=== PATIENT | female | born 1995 ===

== ENCOUNTER → 2022-08-14 | Outpatient (CLI) | payer OTHER ==
--- NOTE | 2022-08-14 16:07 | Diagnostic Imaging Report ---
PROCEDURE: US OB SINGLE FETUS <14 WKS. TECHNIQUE: Multiple real-time grayscale images were obtained over the gravid uterus in various projections. INDICATION: Unsure dates. FINDINGS: There is a single live IUP measuring 17 weeks 0 days gestational age. heart rate was recorded at 146 BPM. Placenta is anterior. The amniotic fluid volume is unremarkable. Cervical length is 4.0 cm. No previa is detected. No perigestational sac hemorrhage is detected. Gestational age is too early for survey. IMPRESSION: Single live IUP of 17 weeks 0 days gestational age with estimated date of confinement sonographically of 01/22/2023. No complicating features are detected. Dictated by: Dictated on workstation # [id number]
== END ==
LOC: RAD 13:41
PROVIDERS: ATTEND Family Medicine
DX: Z34.91 Encounter for supervision of normal pregnancy, unspecified, first trimester (principal); Z3A.17 17 weeks gestation of pregnancy
CPT/HCPCS: 76801

== ENCOUNTER 2023-01-28 06:00 | Inpatient (IN) | payer OTHER ==
[2023-01-28] VITALS (45 sets, daily range): BP systolic 120–171; BP diastolic 61–97
[~2023-01-28] VITALS: Ht 160 cm; Wt 93.1 kg
--- NOTE | 2023-01-28 06:33 | History & Physical-OB ---
OB - Chief Complaint & HPI Date/Time Date of Admission: Date of Admission: Jan 28, 2023 at 06:01 Date seen by a Provider: Jan 28, 2023 Time Seen by a Provider: 06:30 Chief Complaint/History OB-Reason for Admission/Chief: Induction of Labor Hx : 2 Hx Para: 1 Expected Date of Delivery: Jan 26, 2023 Gestational Age in Weeks: 40 Admission Nurse Assessment Rev: Yes Allergies and Home Medications Allergies Coded Allergies: No Known Drug Allergies (Unverified , 01/28/23) Patient Home Medication List Home Medication List Reviewed: Yes No Active Prescriptions or Reported Meds OB - History Hx of Present Care: Yes Ultrasounds: Normal mid trimester US Obstetrical Complications: None Medical Complications: None Patient Past Medical History No chronic medical problems OB - Admission Exam Physical Exam HEENT: Moist Membranes Heart: Rhythm Normal Lungs: Clear Abdomen: Gravid Extremities: Normal Batista Scoring Tool (Modified) Dilation (cm): 1-2cm (1) Effacement (%): 51-79% (2) Descent/Station: -3 (0) Cervix Consistency: Medium(1) Cervix Position: Middle/Mid-Position (1) Add 1 point for: Each previous vaginal delivery (1) Batista Score: 6 OB - Assessment/Plan/Diagnosis Assessment Assessment: induction of labor Admission Dx 1. IUP at term 40 weeks 2. GBS positive (perineum) Admission Status: Inpatient Order (span 2 midnights) Reason for Inpatient Admission: L&D Plan Plan: Induction Induction Method: AROM Other Plan Ampicillin lacihol AURELIA SIU MD Jan 28, 2023 06:33
[2023-01-28] MEDS ORDERED: AMPICILLIN (IV) 2,000 MG in NS (IVPB) 50 ML 50 ML IV ONE (07:22)
[2023-01-28] MEDS ORDERED: MINERAL OIL 30 ML UDC TOP PRN (07:30)
[2023-01-28] MEDS ORDERED: OXYTOCIN PRE-MIX DRIP 500 ML IV SCH ×3 (07:30→17:45)
[2023-01-28 07:33] LABS: BASOPHILS % (AUTO) 0 % (0-10); EOSINOPHILS # (AUTO) 0.1 10^3/uL (0.0-0.3); EOSINOPHILS % (AUTO) 1 % (0-10); HEMATOCRIT 34 % (35-52); HEMOGLOBIN 11.6 g/dL (11.5-16.0); LYMPHOCYTES # (AUTO) 2.3 10^3/uL (1.0-4.0); LYMPHOCYTES % (AUTO) 29 % (12-44); MEAN CORPUSCULAR HEMOGLOBIN 29 pg (25-34); MEAN CORPUSCULAR HGB CONC 34 g/dL (32-36); MEAN CORPUSCULAR VOLUME 83 fL (80-99); MEAN PLATELET VOLUME 12.4 fL (9.0-12.2); MONOCYTES # (AUTO) 0.6 10^3/uL (0.0-1.0); MONOCYTES % (AUTO) 8 % (0-12); NEUTROPHILS # (AUTO) 4.8 10^3/uL (1.8-7.8); NEUTROPHILS % (AUTO) 60 % (42-75); PLATELET COUNT 226 10^3/uL (130-400); WHITE BLOOD COUNT 8.1 10^3/uL (4.3-11.0)
[2023-01-28 07:50] LABS: COLOR,URINE YELLOW
[2023-01-28 07:51] LABS: BACTERIA,URINE FEW /HPF; BILIRUBIN,URINE NEGATIVE (NEGATIVE); CLARITY,URINE CLEAR; GLUCOSE, URINE (UA) NEGATIVE (NEGATIVE); KETONES,URINE NEGATIVE (NEGATIVE); LEUKOCYTE ESTERASE ,URINE 2+ (NEGATIVE); NITRITE,URINE NEGATIVE (NEGATIVE); PROTEIN,URINE NEGATIVE (NEGATIVE)
[2023-01-28] MEDS: D5 LR 1,000 ML IV SOLN 1,000 ML IV SCH ×2 (07:51→16:01)
[2023-01-28] MEDS ORDERED: AMPICILLIN 2,000 MG/14.8 ML (IV USE) ONE (07:55)
[2023-01-28 10:23] LABS: ALBUMIN 3.2 GM/DL (3.2-4.5)
[2023-01-28 10:24] LABS: POTASSIUM 3.9 MMOL/L (3.6-5.0)
[2023-01-28 10:25] LABS: CALCIUM 8.9 MG/DL (8.5-10.1)
[2023-01-28 10:26] LABS: TOTAL PROTEIN 6.5 GM/DL (6.4-8.2)
[2023-01-28 10:28] LABS: BILIRUBIN,TOTAL 0.2 MG/DL (0.1-1.0)
[2023-01-28 10:30] LABS: CREATININE SERUM 0.58 MG/DL (0.60-1.30)
[2023-01-28] MEDS: AMPICILLIN (IV) 1,000 MG in NS (IVPB) 50 ML 50 ML IV SCH ×2 (12:20→16:01)
[2023-01-28] MEDS ORDERED: MEPIVACAINE 2% 50 ML VIAL ONE (15:30)
[2023-01-28] MEDS ORDERED: MEPIVACAINE 2% 50 ML VIAL INJ ONE (16:45)
--- NOTE | 2023-01-28 17:05 | OB Labor & Delivery Record ---
L&D History Date of Service Date of Service: Jan 28, 2023 History Expected Date of Delivery: Jan 26, 2023 Gestational Age in Weeks: 40 Hx : 2 Hx Para: 2 Complications Events: Routine care Operative Indications (Cesarea: N/A-Vaginal Delivery Intrapartal Events: None Other Complications GBS positive at 36 weeks L&D Stage1 Stage One Onset of Labor - Date: Jan 28, 2023 Onset of Labor - Time: 06:38 Monitors and Tracing Monitor Mode: Internal Heart Rate: 145 Monitor Accelerations: Uniform Monitor Decelerations: Early Station: -3 Correction Variability: Average (6-10) Short Term Variability: Present Presentation: Vertex Vital Signs VS - Last 72 Hours, by Label 01/28/23 01/28/23 01/28/23 01/28/23 07:47 07:47 08:07 08:21 Temp 36.2 36.2 Pulse 60 60 58 56 Resp 20 20 20 20 B/P (MAP) 144/83 (103) 134/78 (96) 144/78 (100) Pulse Ox 99 O2 Delivery Room Air 01/28/23 01/28/23 01/28/23 01/28/23 08:37 08:53 09:06 09:21 Pulse 56 58 62 51 Resp 20 20 20 20 B/P (MAP) 153/83 (106) 151/79 (103) 125/80 (95) 149/88 (108) 01/28/23 01/28/23 01/28/23 01/28/23 09:36 09:51 10:07 10:22 Pulse 55 61 56 61 Resp 20 20 20 20 B/P (MAP) 156/84 (108) 147/97 (114) 160/84 (109) 159/84 (109) 01/28/23 01/28/23 01/28/23 01/28/23 10:36 10:52 11:08 11:22 Temp 36.2 Pulse 56 58 62 60 Resp 20 20 20 20 B/P (MAP) 143/85 (104) 165/90 (115) 148/83 (104) 162/91 (114) 01/28/23 01/28/23 01/28/23 01/28/23 11:37 11:52 12:08 12:23 Pulse 55 59 56 59 Resp 20 20 20 20 B/P (MAP) 144/86 (105) 147/78 (101) 145/80 (101) 144/81 (102) 01/28/23 01/28/23 01/28/23 01/28/23 12:37 12:51 13:08 13:24 Temp 36.5 Pulse 59 57 58 63 Resp 20 20 20 20 B/P (MAP) 164/82 (109) 140/80 (100) 148/87 (107) 171/83 (112) 01/28/23 01/28/23 01/28/23 01/28/23 13:37 13:51 14:07 14:21 Pulse 58 62 62 62 Resp 20 20 20 20 B/P (MAP) 156/81 (106) 137/77 (97) 159/83 (108) 150/82 (104) 01/28/23 01/28/23 01/28/23 01/28/23 14:37 14:52 15:07 15:22 Temp 36.5 Pulse 64 64 67 67 Resp 20 20 20 20 B/P (MAP) 154/77 (102) 141/72 (95) 170/84 (112) 139/74 (95) 01/28/23 15:37 Pulse 69 Resp 20 B/P (MAP) 161/73 (102) Signs of Distress by FHT Signs of Distress no Rupture of Membranes Spontaneous Ruture of Membrane: No Amniotic Membrane Rupture Time: 0638 Amniotic Membrane Fluid Desc.: Clear L&D Stage2 Stage Two Stage II Date: Jan 28, 2023 Stage II Time: 16:30 Monitors and Tracing Monitor Mode: Internal Heart Rate: 145 Monitor Accelerations: Uniform Monitor Decelerations: Early Apartment House Manager Variability: Average (6-10) Short Term Variability: Present Position: Left Occiput Anterior Presentation: Vertex Signs of Distress by FHT Signs of Distress no Cord Descript/Complications Cord Vessel Description: 3 Vessels Delivery Type Infant Delivery Method: Spontaneous Vaginal Anterior Shoulder: Left Episiotomy/Perineal Laceration Laceraction(s)/Extensions: No Episiotomy Description: Perineal Extension/lac (minor) Sutures Used: Vicryl Condition of Infant Delivery 1 minute Comment: 8 5 minute Comment: 9 Condition of Infant Condition of Infant: Living Exam: No Observed Abnormalities Resuscitation Resuscitation: N/A - Spontaneous Resp Resuscitation Comments: frequent nasopharygeal suctioning L&D Stage3 Stage Three Stage III Date: Jan 28, 2023 Stage III Time: 16:35 Pictocin Pitocin Administration mu/min: 6 Pitocin ml/hr: 6 Placenta Delivery Placenta Delivery: Spontaneous Delivery Summary Summary Estimated blood loss (mL): 200 Condition of Delivery Examined: Cervix Examined Post Hemorrhage: No Intervention Required none AURELIA SIU MD Jan 28, 2023 17:05
[2023-01-28] MEDS ORDERED: WITCH HAZEL(TUCKS) 40 EA JAR TOP PRN (17:15)
[2023-01-28] MEDS ORDERED: NALOXONE 0.4 MG/ML 1 ML VIAL IV PRN (17:15)
[2023-01-28] MEDS ORDERED: BENZOCAINE/MENTHOL (DERMOPLAST) 56 ML CAN TP PRN (17:15)
[2023-01-28] MEDS ORDERED: MEASLES, MUMPS, RUBELLA VACCINE (MMR) SQ ONE (17:15)
[2023-01-28] MEDS ORDERED: Tetanus/Diphtheria/Pertussis (Acell) ADULT Vaccine 0.5 ML IM ONE (17:15)
[2023-01-28] MEDS: IBUPROFEN 600 MG TABLET PO SCH ×2 (17:45→23:14)
[2023-01-28] MEDS: ACETAMINOPHEN 500 MG TABLET PO SCH ×2 (17:46→23:14)
[2023-01-28] MEDS: DOCUSATE SODIUM 100 MG CAPSULE PO SCH (21:07)
[2023-01-28] MEDS ORDERED: CATHETER FLUSH 10 ML SYR IV SCH (22:00)
[2023-01-29 01:03] VITALS: BP 119/64
[2023-01-29 05:32] LABS: BASOPHILS % (AUTO) 0 % (0-10); EOSINOPHILS # (AUTO) 0.1 10^3/uL (0.0-0.3); EOSINOPHILS % (AUTO) 1 % (0-10); HEMATOCRIT 30 % (35-52); LYMPHOCYTES # (AUTO) 2.3 10^3/uL (1.0-4.0); LYMPHOCYTES % (AUTO) 22 % (12-44); MEAN CORPUSCULAR HEMOGLOBIN 28 pg (25-34); MEAN CORPUSCULAR HGB CONC 34 g/dL (32-36); MEAN CORPUSCULAR VOLUME 83 fL (80-99); MEAN PLATELET VOLUME 11.8 fL (9.0-12.2); MONOCYTES # (AUTO) 0.7 10^3/uL (0.0-1.0); MONOCYTES % (AUTO) 7 % (0-12); NEUTROPHILS # (AUTO) 7.3 10^3/uL (1.8-7.8); NEUTROPHILS % (AUTO) 70 % (42-75); PLATELET COUNT 188 10^3/uL (130-400); WHITE BLOOD COUNT 10.5 10^3/uL (4.3-11.0)
[2023-01-29] MEDS: ACETAMINOPHEN 500 MG TABLET PO SCH ×3 (05:37→18:55)
[2023-01-29] MEDS: IBUPROFEN 600 MG TABLET PO SCH ×3 (05:37→18:54)
[2023-01-29 05:39] VITALS: BP 118/72
[2023-01-29] MEDS: DOCUSATE SODIUM 100 MG CAPSULE PO SCH (09:18)
[2023-01-29 09:53] VITALS: BP 139/74
[2023-01-29 13:00] VITALS: BP 122/75
[2023-01-29 16:00] VITALS: BP 130/70
--- NOTE | 2023-01-29 16:29 | Discharge Summary ---
Diagnosis/Chief Complaint Date of Admission Jan 28, 2023 at 06:01 Date of Discharge January 29, 2023 Admission Diagnosis Admission Diagnosis 1. Intrauterine at 40 weeks gestation 2. Maternal GBS perineum status positive Discharge Diagnosis 1. Intrauterine at 40 weeks gestation 2. Maternal GBS perineum status positive Chief Complaint/HPI Chief Complaint/HPI 27-year-old 2 now term 2 who initially presented to labor and delivery during the morning of January 28, 2023 for induction of labor at 40 weeks gestation. She was noted to have essentially unremarkable course. She was noted to have GBS positive of the perineum at 36 weeks gestation. She is admitted for elective induction of labor. Discharge Summary-OBS Procedures 1. Spontaneous vaginal delivery 2. Repair of minor perineal tear Discharge Physical Examination Allergies: Coded Allergies: No Known Drug Allergies (Unverified , 01/28/23) Vitals & I&Os Intake and Output 01/29/23 00:00 Intake Total 650 ml Balance 650 ml Vital Sign - Last 12Hours Date Time Temp Pulse Resp B/P (MAP) Pulse Ox O2 Delivery O2 Flow Rate FiO2 01/29/23 13:00 36.8 74 16 122/75 (91) 98 Room Air General Appearance: Alert, Oriented X3 HEENT: Atraumatic Respiratory: Clear to Auscultation Cardiovascular: Regular Rate Abdominal: Soft (With uterus firm) Skin: No Rashes Psych/Mental Status: Mental Status NL Hospital Course Was the Problem List Reviewed?: Yes following admission on January 28, 2023 she underwent amniotomy with placement of scalp electrode. Fluid was noted to be essentially clear. She required low-dose Pitocin augmentation to achieve adequate contraction. Her blood pressure was marginally elevated but preeclampsia workup was negative. She ultimately went on to deliver over a minor perineal tear a term viable male. received Apgars of 8 at 1 minute and 9 at 5 minutes. weight was 8 lbs. 13 oz. Following delivery she underwent routine care orders. She had no complications during the remainder of hospital stay. She was noted to void urine without difficulty she ambulated without chest pain or leg pain. She tolerated regular diet. Her hemoglobin in the morning of January 29, 2023 was 10.0 compared to admission of 11.6. She was felt ready for dismissal during the early evening of January 29, 2023. She will follow-up with myself in 6 weeks Labs Laboratory Tests 01/29/23 05:23: White Blood Count 10.5, Red Blood Count 3.56L, Hemoglobin 10.0L, Hematocrit 30L, Mean Corpuscular Volume 83, Mean Corpuscular Hemoglobin 28, Mean Corpuscular Hemoglobin Concent 34, Red Cell Distribution Width 13.1, Platelet Count 188, Mean Platelet Volume 11.8, Immature Granulocyte % (Auto) 1, Neutrophils (%) (Auto) 70, Lymphocytes (%) (Auto) 22, Monocytes (%) (Auto) 7, Eosinophils (%) (Auto) 1, Basophils (%) (Auto) 0, Neutrophils # (Auto) 7.3, Lymphocytes # (Auto) 2.3, Monocytes # (Auto) 0.7, Eosinophils # (Auto) 0.1, Basophils # (Auto) 0.0, Immature Granulocyte # (Auto) 0.1 Microbiology 01/28/23 Urine Culture - Final, Complete See Comments Discharge Instructions to patient/family Please see electronic discharge instructions given to patient. Discharge Medications Reviewed and agree with Discharge Medication list on patient's Discharge Instruction sheet AURELIA SIU MD Jan 29, 2023 16:29
--- NOTE | 2023-01-29 16:30 | Discharge Inst-Women's Service ---
Discharge Inst-Women's Serv Depart Medication/Instructions New, Converted or Re-Newed RX: Other Instructions may take ibuprofen [id number] 200 mg tablet, 2 or 3 every 6 hours if needed for cramps Problems Reviewed?: Yes Consults/Follow Up Additional Follow Up: Yes (Dr. Siu in 6 weeks) Activity Driving Instructions: No Driving for 1 Week Nothing Inside Vagina: No [place] (For 6 weeks) Diet Discharge Diet: Regular Diet Return to The Hospital For: As below Symptoms to Report to : Swelling Increased, Fever Over 101 Degrees F, Vaginal Discharge Foul For Any Problems or Questions: Contact Your Physician AURELIA SIU MD Jan 29, 2023 16:30
[2023-01-29 18:55] VITALS: BP 130/70
== END 2023-01-29 19:15 | disposition home or self-care (01) | DRG 807 ==
LOC: LDRP 06:01
PROVIDERS: ADMIT Family Medicine; ATTEND Family Medicine
PROC: 10E0XZZ Delivery of Products of Conception, External Approach (ICD-10-PCS; principal; 2023-01-28)
PROC: 0HQ9XZZ Repair Perineum Skin, External Approach (ICD-10-PCS; 2023-01-28)
PROC: 10907ZC Drainage of Amniotic Fluid, Therapeutic from Products of Conception, Via Natural or Artificial Opening (ICD-10-PCS; 2023-01-28)
DX: O48.0 Post-term pregnancy (principal); Z37.0 Single live birth; O99.824 Streptococcus B carrier state complicating childbirth; Z3A.40 40 weeks gestation of pregnancy; O70.0 First degree perineal laceration during delivery
CPT/HCPCS: 36415; 80053; 81000; 82570; 84156; 85025; 86780; 86850; 86900; 86901; 87088